=== PATIENT | female | born 1970 | race Caucasian/White ===

== ENCOUNTER 2020-01-02 16:31 | Emergency (ER) | payer BC ==
[2020-01-02 16:56] VITALS: BP 130/78
--- NOTE | 2020-01-02 17:05 | UC ---
Skin Complaint HPI - HPI Summary HPI Summary: Pt. woke this AM feeling nauseous, feverish, chills, right breast redness, soreness. 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 - History of Current Complaint Chief Complaint: UCSkin Time Seen by Provider: 01/02/20 17:00 Stated Complaint: SKIN ISSUE RIGHT BREAST Hx Obtained From: Patient Hx Last Menstrual Period: 07/2019 Onset/Duration: Sudden Onset Pain Intensity: 3 Pain Scale Used: 0-10 Numeric Location: Discrete Aggravating Factor(s): Touch Alleviating Factor(s): Nothing - Allergy/Home Medications Allergies/Adverse Reactions: Allergies Allergy/AdvReac Type Severity Reaction Status Date / Time ibuprofen Allergy Hives Verified 01/02/20 16:46 Home Medications: Home Medications Acetaminophen [Acetaminophen Extra Strength] 100 mg PO Q6H PRN 01/02/20 [ History Confirmed 01/02/20] Azelastine HCl 137 mcg NS DAILY 01/02/20 [History Confirmed 01/02/20] Cephalexin CAP* [Keflex CAP*] 500 mg PO TID 10 Days #30 cap 01/02/20 [Rx] Cholecalciferol (Vitamin D3) [Vitamin D3] 1,000 unit PO DAILY 01/02/20 [History Confirmed 01/02/20] Fexofenadine (NF) [Shikha 180 (NF)] 180 mg PO DAILY 01/02/20 [History Confirmed 01/02/20] Multivitamin [Multiple Vitamins] 1 tab PO DAILY 01/02/20 [History Confirmed ] Tamoxifen Citrate 20 mg PO DAILY 01/02/20 [History Confirmed 01/02/20] Triamcinolone NASAL SPRAY* [Nasacort AQ Nasal [place]*] 1 spray BOTH NARES DAILY 01/02/20 [History Confirmed 01/02/20] PMH/Surg Hx/FS Hx/Imm Hx - Additional Past Medical History Additional PMH: hx of breast ca: DCIS Previously Healthy: Yes - Surgical History Surgical History: Yes Surgery Procedure, Year, and Place: Lumpectomies x 2-2000, 2016 - Social History Alcohol Use: None Substance Use Type: None Smoking Status (MU): Never Smoked Tobacco Review of Systems All Other Systems Reviewed And Are Negative: Yes Constitutional: Positive: Fever Skin: Positive: Rash Physical Exam Triage Information Reviewed: Yes Appearance: Well-Appearing Vital Signs: Initial Vital Signs Temp 100.5 F 01/02/20 16:52 Pulse 90 01/02/20 16:52 Resp 15 01/02/20 16:52 BP 130/78 01/02/20 16:52 Pulse Ox 100 01/02/20 16:52 Vital Signs Reviewed: Yes Neck: Positive: No Lymphadenopathy. Negative: Other: - no lymphadenopathy in r axilla either. Respiratory: Positive: No respiratory distress Skin: Positive: Other - R bresat around areola and extending to under R breast is large patch of cellulitis, tender to touch. no nipple discharge. Course/Dx - Course Course Of Treatment: R breast pain and redness, sudden in a pt w/ hx of DCIS. She is slightly febrile today so will tx w/ antibx but have strongly encouraged her to see her Oncologist this week to rule out any other issues. she has verbalized understanding. On exam no R axilla lymphadenopathy. - Differential Diagnoses - Skin Complaint Differential Diagnoses: Abscess, Cellulitis, Other - Diagnoses Provider Diagnosis: Cellulitis Discharge ED - Sign-Out/Discharge Documenting (check all that apply): Patient Departure All imaging exams completed and their final reports reviewed: No Studies - Discharge Plan Condition: Good Disposition: HOME Prescriptions: Cephalexin CAP* [Keflex CAP*] 500 mg PO TID 10 Days #30 cap Patient Education Materials: Cellulitis (DC) Referrals: Leighann Heart MD [Primary Care Provider] - Additional Instructions: Please ensure you make appointment with Oncology for follow up for lopez evaluation by Saturday. - Billing Disposition and Condition Condition: GOOD Disposition: Home - Attestation Statements Provider Attestation: I was available for consult. This patient was seen by the RENA. The patient was not presented to , seen by or examined by ut -Angelica Mejia MD
== END 2020-01-02 17:11 | disposition home or self-care (01) ==
LOC: UCCORT 16:31
DX: L03.90 Cellulitis, unspecified (principal); Z85.3 Personal history of malignant neoplasm of breast; Z88.6 Allergy status to analgesic agent
CPT/HCPCS: 99212; G0463